=== PATIENT | female | born 1985 ===

== ENCOUNTER 2018-04-30 18:56 | Emergency (ER) | payer MEDICAID, MEDICARE, OTHER ==
[~2018-04-30] VITALS: Ht 180.3 cm; Wt 89.0 kg
[2018-04-30 19:15] VITALS: BP 129/87
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
[2018-04-30 19:36] LABS: BASOPHILS # (AUTO) 0.04 x10^3/uL (0-0.1); BASOPHILS % (AUTO) 1 % (0-1); EOSINOPHILS # (AUTO) 0.08 x10^3/uL (0-0.4); EOSINOPHILS % (AUTO) 1 % (1-7); LYMPHOCYTES % (AUTO) 34 % (22-44); MD NO; MEAN CORPUSCULAR HEMOGLOBIN 29.6 pg (27.0-34.8); MEAN CORPUSCULAR HGB CONC 33.4 g/dL (32.4-35.8); MEAN CORPUSCULAR VOLUME 88.8 fL (80-100); MEAN PLATELET VOLUME 6.2 fL (7.4-10.4); MONOCYTES # (AUTO) 0.47 x10^3/uL (0.2-0.8); MONOCYTES % (AUTO) 7 % (2-9); NEUTROPHILS # (AUTO) 3.73 x10^3/uL (1.8-6.8); NEUTROPHILS % (AUTO) 57 % (42-75); PLATELET COUNT 459 x10^3/uL (130-400); RED BLOOD COUNT 4.45 x10^6/uL (3.82-5.3); RED CELL DISTRIBUTION WIDTH 15.5 % (9.6-15.2)
[2018-04-30 19:43] LABS: AMPHETAMINE SCREEN, URINE Positive (Negative); BARBITURATE SCREEN, URINE Negative (Negative); BENZODIAZEPINE SCREEN, URINE Negative (Negative); CANNABINOID SCREEN, URINE Positive (Negative); COCAINE SCREEN, URINE Negative (Negative); METHADONE SCREEN, URINE Negative (Negative); OPIATE SCREEN, URINE Negative (Negative)
[2018-04-30 19:45] LABS: ALANINE AMINOTRANSFERASE 26 U/L (12-78); ALBUMIN 3.2 g/dL (3.4-5.0); ANION GAP 7 mmol/L (5-15); CALCIUM 8.4 mg/dL (8.5-10.1); CHLORIDE 105 mmol/L (98-107)
[2018-04-30 19:46] LABS: CULTURE INDICATED? YES; MICROSCOPIC INDICATED
[2018-04-30 19:50] LABS: ALKALINE PHOSPHATASE 77 U/L (45-117); BILIRUBIN,TOTAL 0.2 mg/dL (0.2-1.0); CREATININE 0.74 mg/dL (0.55-1.02); TOTAL PROTEIN 7.1 g/dL (6.4-8.2)
[2018-04-30 19:52] LABS: SALICYLATE LEVEL < 1.7 mg/dL (2.8-20.0)
[2018-04-30 19:53] LABS: ACETAMINOPHEN < 2 mcg/mL (10-30)
--- NOTE | 2018-04-30 20:04 | NUR ---
Telepsych initiated, [id number] bot placed at BS
--- NOTE | 2018-04-30 20:50 | NUR ---
PT RESTING ON GURNEY, RR EVEN AND UNLABORED. PT IS CALM AND COOPERATIVE ATT. PT DENIES NEEDS OR PAIN ATT. AWAITING TELEPSYCH
--- NOTE | 2018-04-30 21:24 | NUR ---
report given to soc
--- NOTE | 2018-04-30 21:24 | NUR ---
PT HAVING TELEPSYCH CONSULT ATT
== END 2018-04-30 22:08 | disposition home or self-care (01) ==
LOC: ED 20:43
DX: F32.1 Major depressive disorder, single episode, moderate (principal); F17.200 Nicotine dependence, unspecified, uncomplicated
CPT/HCPCS: 36415; 80053; 80307; 80329; 81001; 84443; 84703; 85025; 87086; 99284; G0480

== ENCOUNTER 2018-05-10 15:39 | Emergency (ER) | payer MEDICAID, MEDICARE ==
[2018-05-10 15:50] VITALS: BP 119/91
--- NOTE | 2018-05-10 15:59 | NUR ---
BIB [facility] ABD PAIN RASH AND THINKS SHE IS SIX MO PREG WANTS A PREG TEST STS LAST PERIOD 1 MO AGO APPEARS SLIGHTLY CONFUSED
[2018-05-10 16:52] LABS: HCG UR SG 1.018 (1.003-1.030)
== END 2018-05-10 18:07 | disposition home or self-care (01) ==
LOC: ED 18:01
DX: L50.0 Allergic urticaria (principal); F32.9 Major depressive disorder, single episode, unspecified; Z87.891 Personal history of nicotine dependence
CPT/HCPCS: 81025; 99284; J7512

== ENCOUNTER 2018-05-14 21:19 | Observation (INO) | payer MEDICARE ==
[~2018-05-14] VITALS: Ht 175.3 cm; Wt 102.0 kg
[2018-05-14 22:11] LABS: BASOPHILS # (AUTO) 0.05 x10^3/uL (0-0.1); BASOPHILS % (AUTO) 1 % (0-1); EOSINOPHILS # (AUTO) 0.07 x10^3/uL (0-0.4); EOSINOPHILS % (AUTO) 1 % (1-7); LYMPHOCYTES # (AUTO) 2.72 x10^3/uL (1-3.4); LYMPHOCYTES % (AUTO) 36 % (22-44); MD NO; MEAN CORPUSCULAR HEMOGLOBIN 29.4 pg (27.0-34.8); MEAN CORPUSCULAR HGB CONC 33.1 g/dL (32.4-35.8); MEAN CORPUSCULAR VOLUME 88.7 fL (80-100); MEAN PLATELET VOLUME 6.8 fL (7.4-10.4); MONOCYTES # (AUTO) 0.78 x10^3/uL (0.2-0.8); MONOCYTES % (AUTO) 10 % (2-9); NEUTROPHILS # (AUTO) 3.95 x10^3/uL (1.8-6.8); NEUTROPHILS % (AUTO) 52 % (42-75); PLATELET COUNT 425 x10^3/uL (130-400); RED BLOOD COUNT 4.42 x10^6/uL (3.82-5.3); RED CELL DISTRIBUTION WIDTH 15.3 % (9.6-15.2)
[2018-05-14 22:23] LABS: ALANINE AMINOTRANSFERASE 27 U/L (12-78); ALBUMIN 3.2 g/dL (3.4-5.0); ANION GAP 5 mmol/L (5-15); CALCIUM 8.2 mg/dL (8.5-10.1); CHLORIDE 102 mmol/L (98-107)
[2018-05-14 22:25] LABS: ALKALINE PHOSPHATASE 94 U/L (45-117); BILIRUBIN,TOTAL 0.2 mg/dL (0.2-1.0); TOTAL PROTEIN 7.3 g/dL (6.4-8.2)
[2018-05-14 22:29] LABS: SALICYLATE LEVEL < 1.7 mg/dL (2.8-20.0)
[2018-05-14 22:30] LABS: ACETAMINOPHEN < 2 mcg/mL (10-30)
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
[2018-05-14] MEDS ORDERED: ABILIFY (22:46)
--- NOTE | 2018-05-14 23:14 | NUR ---
ROOM SECURE. BELONGINGS LOCKED UP: TWO BAGS
--- NOTE | 2018-05-14 23:56 | NUR ---
TASK RN: MICHELLE COLLECTED IN COMPUTER. LAB CONTACTED TO MAKE AWARE.
--- NOTE | 2018-05-14 23:58 | NUR ---
PT RESTING IN ROOM. NO ACUTE DISTRESS NOTED. SITTER AT DOOR. WILL CONTINUE TO MONITOR.
--- NOTE | 2018-05-15 00:03 | NUR ---
TELEPSYCH INITIATED, [id number] BOT PLACED AT BEDSIDE.
--- NOTE | 2018-05-15 00:25 | NUR ---
PT TALKING TO TELEPSYCH. SITTER AT DOOR. WILL CONTINUE TO MONITOR.
[2018-05-15 00:26] LABS: AMPHETAMINE SCREEN, URINE Negative (Negative); BARBITURATE SCREEN, URINE Negative (Negative); BENZODIAZEPINE SCREEN, URINE Negative (Negative); CANNABINOID SCREEN, URINE Positive (Negative); COCAINE SCREEN, URINE Negative (Negative); METHADONE SCREEN, URINE Negative (Negative); OPIATE SCREEN, URINE Negative (Negative)
--- NOTE | 2018-05-15 01:11 | NUR ---
REPORT GIVEN TO SANDRA SEGOVIA
--- NOTE | 2018-05-15 01:11 | NUR ---
REPORT FROM [facility] ASSUMED CARE OF PT
--- NOTE | 2018-05-15 01:12 | NUR ---
Patient is resting comfortably in bed. Vital Signs within normal limits. SITTER AT DOOR
[2018-05-15] MEDS ORDERED: IBUPROFEN 600 MG TABLET PO PRN (04:00)
[2018-05-15] MEDS ORDERED: OLANZAPINE 10 MG INJ IM PRN (04:00)
[2018-05-15] MEDS ORDERED: ACETAMINOPHEN 325 MG TABLET PO PRN (04:00)
[2018-05-15] MEDS ORDERED: GUAIFENESIN/DM 200-20MG, 10ML UDC PO PRN (04:00)
[2018-05-15] MEDS ORDERED: OLANZAPINE 5 MG TABLET PO PRN (04:00)
[2018-05-15] MEDS ORDERED: ONDANSETRON ODT 4 MG PO PRN (04:00)
[2018-05-15] MEDS ORDERED: POLYETHYLENE GLYCOL 17 GM PACKET PO PRN (04:00)
--- NOTE | 2018-05-15 05:50 | NUR ---
PT SLEPT THROUGH NIGHT IN NAD
--- NOTE | 2018-05-15 06:57 | NUR ---
SBAR HAND-OFF REPORT RECEIVED FROM SANDRA CASSIDY. ASSUMING CARE OF PATIENT.
--- NOTE | 2018-05-15 06:58 | NUR ---
PT SLEEPING AT THIS TIME. CHEST RISE AND FALL OBSERVED.
--- NOTE | 2018-05-15 09:01 | NUR ---
REPORT FROM SANDRA RITTER. PT SLEEPING IN [facility]. EQUAL RISE AND FALL OF CHEST. NAD NOTED AT THSI TIME. SITTER OUTSIDE ROOM. ROOM SECURED.
--- NOTE | 2018-05-15 09:34 | NUR ---
LOTUS @ [facility] CALLED, STATED DOC DOES NOT FEEL SHE IS APPROPRIATE FOR ADMISSION. DENIED
[2018-05-15 09:51] VITALS: BP 120/80
--- NOTE | 2018-05-15 10:05 | NUR ---
PT RESTING IN [facility]. NO NEEDS AT THIS TIME. SITTER OUTSIDE ROOM. ROOM SECURED.
--- NOTE | 2018-05-15 11:11 | NUR ---
[facility] NOTIFIED OF APPROX 134 ETA
--- NOTE | 2018-05-15 11:15 | NUR ---
PT RESTING IN [facility]. NO NEEDS AT THIS TIME. SITTER OUTSIDE ROOM. ROOM SECURED.
--- NOTE | 2018-05-15 12:30 | NUR ---
[facility] T[facility] ORDERED[phone]
--- NOTE | 2018-05-15 13:00 | NUR ---
PT GIVEN FOOD TRAY. SITTER CONTINUES TO BE IN PLACE.
[2018-05-15] MEDS ORDERED: IBUPROFEN 600 MG TABLET ONE (13:45)
--- NOTE | 2018-05-15 13:48 | NUR ---
PT COMPLAINING OF LEFT FOOT PAIN. PT MEDICATED PER JUN. RIGHTS VERIFIED PRIOR.
--- NOTE | 2018-05-15 13:55 | NUR ---
REPORT TO [facility] STAFF. PT TO [facility] VIA [facility].
[2018-05-15] MEDS ORDERED: QUETIAPINE 100MG TABLET PO SCH (21:00)
== END 2018-05-15 14:21 ==
LOC: ED 22:45 → EDIP 05-15 00:35 → SUATTDRO 05-15 03:54
PROVIDERS: ADMIT Hospitalist; ATTEND Hospitalist
DX: F25.9 Schizoaffective disorder, unspecified (principal); F32.9 Major depressive disorder, single episode, unspecified; F17.210 Nicotine dependence, cigarettes, uncomplicated; F12.90 Cannabis use, unspecified, uncomplicated; Z91.14 Patient's other noncompliance with medication regimen
CPT/HCPCS: 36415; 80053; 80307; 80329; 84443; 84703; 85025; 93005; 99284; G0378; G0480

== ENCOUNTER 2018-10-12 21:43 | Emergency (ER) | payer MEDICARE ==
[~2018-10-12] VITALS: Ht 177.8 cm; Wt 100.0 kg
[~2018-10-12 21:43] MED LIST: ABILIFY
--- NOTE | 2018-10-12 23:04 | NUR ---
REPORT TO HERMILO FLORES, [employer] AT BEDSIDE. PT SLEEPING IN [facility] ON MONITOR. EQUAL CHEST RISE AND FALL
[2018-10-12 23:28] VITALS: BP 107/64
== END 2018-10-12 23:29 | disposition home or self-care (01) ==
LOC: ED 22:22
DX: O26.891 Other specified pregnancy related conditions, first trimester (principal); R45.1 Restlessness and agitation; F32.9 Major depressive disorder, single episode, unspecified; F29 Unspecified psychosis not due to a substance or known physiological condition; Z3A.00 Weeks of gestation of pregnancy not specified
CPT/HCPCS: 36415; 84703; 99283

== ENCOUNTER 2019-02-07 16:51 | Emergency (ER) | payer MEDICARE, MEDICAID ==
[~2019-02-07] VITALS: Ht 175.3 cm; Wt 95.3 kg
[~2019-02-07 16:51] MED LIST changes: +Prenatal Vit/Iron/Fa PO
[2019-02-07 17:24] VITALS: BP 109/73
[2019-02-07 17:52] LABS: BASOPHILS # (AUTO) 0.03 x10^3/uL (0-0.1); BASOPHILS % (AUTO) 0 % (0-1); EOSINOPHILS # (AUTO) 0.13 x10^3/uL (0-0.4); EOSINOPHILS % (AUTO) 2 % (1-7); LYMPHOCYTES # (AUTO) 1.96 x10^3/uL (1-3.4); LYMPHOCYTES % (AUTO) 26 % (22-44); MD NO; MEAN CORPUSCULAR HEMOGLOBIN 30.4 pg (27.0-34.8); MEAN CORPUSCULAR HGB CONC 32.7 g/dL (32.4-35.8); MEAN CORPUSCULAR VOLUME 93.1 fL (80-100); MEAN PLATELET VOLUME 6.1 fL (7.4-10.4); MONOCYTES # (AUTO) 0.52 x10^3/uL (0.2-0.8); MONOCYTES % (AUTO) 7 % (2-9); NEUTROPHILS # (AUTO) 4.87 x10^3/uL (1.8-6.8); NEUTROPHILS % (AUTO) 65 % (42-75); PLATELET COUNT 516 x10^3/uL (130-400); RED BLOOD COUNT 3.72 x10^6/uL (3.82-5.3); RED CELL DISTRIBUTION WIDTH 15.8 % (9.6-15.2)
[2019-02-07 18:04] LABS: ALBUMIN 2.4 g/dL (3.4-5.0); ANION GAP 6 mmol/L (5-15); CALCIUM 8.1 mg/dL (8.5-10.1); CHLORIDE 105 mmol/L (98-107); CREATININE 0.55 mg/dL (0.55-1.02)
[2019-02-07 18:07] LABS: SALICYLATE LEVEL < 1.7 mg/dL (2.8-20.0)
[2019-02-07 18:22] LABS: HCG UR SG 1.016 (1.003-1.030)
[2019-02-07 18:24] LABS: MICROSCOPIC INDICATED
[2019-02-07 18:25] LABS: CULTURE INDICATED? YES
[2019-02-07 18:45] LABS: AMPHETAMINE SCREEN, URINE Negative (Negative); BARBITURATE SCREEN, URINE Negative (Negative); BENZODIAZEPINE SCREEN, URINE Negative (Negative); CANNABINOID SCREEN, URINE Negative (Negative); COCAINE SCREEN, URINE Negative (Negative); METHADONE SCREEN, URINE Negative (Negative); OPIATE SCREEN, URINE Negative (Negative)
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
--- NOTE | 2019-02-07 19:49 | NUR ---
ROTARY SWAGING MACHINE OPERATOR AT BEDSIDE.
[2019-02-07] MEDS ORDERED: NITR100C56 PO (22:35)
[2019-02-08] MEDS ORDERED: ARIP400S IM (02:48)
== END 2019-02-07 21:10 ==
LOC: ED 19:50
DX: O99.342 Other mental disorders complicating pregnancy, second trimester (principal); F25.0 Schizoaffective disorder, bipolar type; Z3A.22 22 weeks gestation of pregnancy; Z72.9 Problem related to lifestyle, unspecified
CPT/HCPCS: 36415; 80048; 80307; 81001; 81025; 82040; 85025; 87086; 99284

== ENCOUNTER 2019-02-07 19:19 | Inpatient (IN) | payer MEDICARE, MEDICAID ==
[~2019-02-07] VITALS: Ht 175.3 cm; Wt 93.9 kg
[2019-02-07 21:03] VITALS: BP 103/69
[2019-02-07 21:05] VITALS: BP 103/69
[2019-02-07] MEDS ORDERED: NITR100C56 PO (22:35)
[2019-02-07] MEDS: NITROFURANTOIN (MACROBID) 100 MG CAPSULE PO SCH (23:21)
[2019-02-08] MEDS ORDERED: ARIP400S IM (02:48)
[2019-02-08 05:35] LABS: ALANINE AMINOTRANSFERASE 28 U/L (12-78); ALBUMIN 1.9 g/dL (3.4-5.0); ANION GAP 5 mmol/L (5-15); CALCIUM 7.9 mg/dL (8.5-10.1); CHLORIDE 108 mmol/L (98-107); CREATININE 0.52 mg/dL (0.55-1.02)
[2019-02-08 05:37] LABS: ALKALINE PHOSPHATASE 76 U/L (45-117); BILIRUBIN,TOTAL 0.2 mg/dL (0.2-1.0)
[2019-02-08 05:39] LABS: BASOPHILS # (AUTO) 0.03 x10^3/uL (0-0.1); BASOPHILS % (AUTO) 1 % (0-1); EOSINOPHILS # (AUTO) 0.16 x10^3/uL (0-0.4); EOSINOPHILS % (AUTO) 3 % (1-7); LYMPHOCYTES % (AUTO) 33 % (22-44); MD NO; MEAN CORPUSCULAR HEMOGLOBIN 30.3 pg (27.0-34.8); MEAN CORPUSCULAR HGB CONC 32.8 g/dL (32.4-35.8); MEAN CORPUSCULAR VOLUME 92.2 fL (80-100); MEAN PLATELET VOLUME 5.9 fL (7.4-10.4); MONOCYTES # (AUTO) 0.47 x10^3/uL (0.2-0.8); MONOCYTES % (AUTO) 8 % (2-9); NEUTROPHILS # (AUTO) 3.16 x10^3/uL (1.8-6.8); NEUTROPHILS % (AUTO) 55 % (42-75); PLATELET COUNT 440 x10^3/uL (130-400); RED BLOOD COUNT 3.23 x10^6/uL (3.82-5.3); RED CELL DISTRIBUTION WIDTH 15.7 % (9.6-15.2)
[2019-02-08 06:07] LABS: FREE T4 (FREE THYROXINE) 0.79 ng/dL (0.76-1.46)
[2019-02-08 07:30] VITALS: BP 96/61
[2019-02-08 07:35] LABS: CHOL/HDL RATIO 4.3; LDL/HDL RATIO 2.6 (0.5-3.0)
[2019-02-08] MEDS: PRENATAL VIT/IRON/FA 1 EACH TABLET PO SCH (08:39)
[2019-02-08] MEDS: NITROFURANTOIN (MACROBID) 100 MG CAPSULE PO SCH ×2 (08:39→20:10)
[2019-02-08] MEDS ORDERED: DOCUSATE 100 MG CAPSULE PO PRN (09:00)
[2019-02-08] MEDS ORDERED: BISACODYL 10 MG SUPP PR PRN (09:00)
[2019-02-08] MEDS ORDERED: ONDANSETRON ODT 4 MG PO PRN (09:00)
[2019-02-08] MEDS ORDERED: PRENATAL VIT/IRON/FA 1 EACH TABLET PO SCH (09:00)
[2019-02-08] MEDS ORDERED: ACETAMINOPHEN 325 MG TABLET PO PRN (09:00)
[2019-02-08] MEDS ORDERED: POLYETHYLENE GLYCOL 17 GM PACKET PO PRN (09:00)
[2019-02-08 19:18] VITALS: BP 107/65
[2019-02-09 07:11] VITALS: BP 102/69
[2019-02-09] MEDS: PRENATAL VIT/IRON/FA 1 EACH TABLET PO SCH (08:33)
[2019-02-09] MEDS: NITROFURANTOIN (MACROBID) 100 MG CAPSULE PO SCH ×2 (08:33→20:20)
[2019-02-09 19:18] VITALS: BP 98/66
[2019-02-10 07:23] VITALS: BP 94/56
[2019-02-10] MEDS: NITROFURANTOIN (MACROBID) 100 MG CAPSULE PO SCH ×2 (08:51→20:28)
[2019-02-10] MEDS: PRENATAL VIT/IRON/FA 1 EACH TABLET PO SCH (08:51)
[2019-02-10 19:57] VITALS: BP 101/68
[2019-02-11 07:46] VITALS: BP 97/67
[2019-02-11] MEDS: PRENATAL VIT/IRON/FA 1 EACH TABLET PO SCH (08:16)
[2019-02-11] MEDS: NITROFURANTOIN (MACROBID) 100 MG CAPSULE PO SCH ×2 (08:16→20:18)
[2019-02-11 19:30] VITALS: BP 99/66
[2019-02-12 07:20] VITALS: BP 95/60
[2019-02-12 07:21] VITALS: BP 90/60
[2019-02-12] MEDS: NITROFURANTOIN (MACROBID) 100 MG CAPSULE PO SCH ×2 (08:23→20:17)
[2019-02-12] MEDS: PRENATAL VIT/IRON/FA 1 EACH TABLET PO SCH (08:57)
[2019-02-12 19:40] VITALS: BP 102/59
[2019-02-13 07:20] VITALS: BP 100/63
[2019-02-13] MEDS: PRENATAL VIT/IRON/FA 1 EACH TABLET PO SCH (08:03)
[2019-02-13] MEDS: NITROFURANTOIN (MACROBID) 100 MG CAPSULE PO SCH ×2 (08:03→19:51)
[2019-02-13 19:22] VITALS: BP 109/74
[2019-02-14 07:20] VITALS: BP 93/59
[2019-02-14] MEDS: NITROFURANTOIN (MACROBID) 100 MG CAPSULE PO SCH (08:23)
[2019-02-14] MEDS: PRENATAL VIT/IRON/FA 1 EACH TABLET PO SCH (08:23)
[2019-02-14 19:15] VITALS: BP 108/67
[2019-02-15 07:47] VITALS: BP 102/69
[2019-02-15] MEDS: PRENATAL VIT/IRON/FA 1 EACH TABLET PO SCH (08:08)
[2019-02-15 19:44] VITALS: BP 110/88
[2019-02-16 07:42] VITALS: BP 107/74
[2019-02-16] MEDS: PRENATAL VIT/IRON/FA 1 EACH TABLET PO SCH (08:30)
[2019-02-16 20:12] VITALS: BP 107/72
[2019-02-17 07:48] VITALS: BP 97/63
[2019-02-17] MEDS: PRENATAL VIT/IRON/FA 1 EACH TABLET PO SCH (12:30)
[2019-02-17] MEDS ORDERED: Prenatal Vit/Iron/Fa PO (16:50)
[2019-02-17 19:38] VITALS: BP 100/62
[2019-02-18 07:17] VITALS: BP 99/60
[2019-02-18] MEDS: PRENATAL VIT/IRON/FA 1 EACH TABLET PO SCH (08:36)
== END 2019-02-18 15:10 | disposition home or self-care (01) | DRG 831 ==
LOC: 3E 20:41
PROVIDERS: ADMIT Psychiatry & Neurology Psychosomatic Medicine; ATTEND Psychiatry & Neurology Psychosomatic Medicine
DX: O99.342 Other mental disorders complicating pregnancy, second trimester (principal); E43 Unspecified severe protein-calorie malnutrition; O23.42 Unspecified infection of urinary tract in pregnancy, second trimester; F15.20 Other stimulant dependence, uncomplicated; O99.322 Drug use complicating pregnancy, second trimester; F25.0 Schizoaffective disorder, bipolar type; F15.21 Other stimulant dependence, in remission; R62.7 Adult failure to thrive; O26.892 Other specified pregnancy related conditions, second trimester; D64.9 Anemia, unspecified; F17.200 Nicotine dependence, unspecified, uncomplicated; O25.12 Malnutrition in pregnancy, second trimester; O99.012 Anemia complicating pregnancy, second trimester; Z66 Do not resuscitate; O99.332 Smoking (tobacco) complicating pregnancy, second trimester; Z3A.23 23 weeks gestation of pregnancy; Z59.0 Homelessness
CPT/HCPCS: 36415; 76805; 80048; 80053; 80061; 80307; 81001; 81025; 82040; 82140; 82607; 84439; 84443; 85025; 86592; 86762; 86850; 86900; 87086; 87340; 87389; 93005; 99284

== ENCOUNTER 2019-02-22 13:57 | Emergency (ER) | payer MEDICARE, MEDICAID ==
[~2019-02-22] VITALS: Ht 175.3 cm; Wt 76.0 kg
[~2019-02-22 13:57] MED LIST changes: +ARIP400S IM; +NITR100C56 PO
[2019-02-22 14:22] VITALS: BP 113/77
[2019-02-22] MEDS ORDERED: ARIP400S3 IM (14:40)
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
--- NOTE | 2019-02-22 15:06 | NUR ---
CONFIRMED VIA US.
[2019-02-22 15:36] LABS: BASOPHILS # (AUTO) 0.02 x10^3/uL (0-0.1); BASOPHILS % (AUTO) 0 % (0-1); EOSINOPHILS # (AUTO) 0.02 x10^3/uL (0-0.4); EOSINOPHILS % (AUTO) 0 % (1-7); LYMPHOCYTES # (AUTO) 1.64 x10^3/uL (1-3.4); LYMPHOCYTES % (AUTO) 26 % (22-44); MD NO; MEAN CORPUSCULAR HEMOGLOBIN 30.1 pg (27.0-34.8); MEAN CORPUSCULAR HGB CONC 33.1 g/dL (32.4-35.8); MEAN CORPUSCULAR VOLUME 91.1 fL (80-100); MONOCYTES # (AUTO) 0.43 x10^3/uL (0.2-0.8); MONOCYTES % (AUTO) 7 % (2-9); NEUTROPHILS # (AUTO) 4.28 x10^3/uL (1.8-6.8); NEUTROPHILS % (AUTO) 67 % (42-75); PLATELET COUNT 469 x10^3/uL (130-400); RED BLOOD COUNT 3.62 x10^6/uL (3.82-5.3); RED CELL DISTRIBUTION WIDTH 16.6 % (9.6-15.2)
[2019-02-22 15:47] LABS: ALANINE AMINOTRANSFERASE 31 U/L (12-78); ALBUMIN 2.5 g/dL (3.4-5.0); ANION GAP 6 mmol/L (5-15); CALCIUM 8.3 mg/dL (8.5-10.1); CHLORIDE 109 mmol/L (98-107); CREATININE 0.66 mg/dL (0.55-1.02)
[2019-02-22 15:50] LABS: ALKALINE PHOSPHATASE 81 U/L (45-117); BILIRUBIN,TOTAL 0.4 mg/dL (0.2-1.0); SALICYLATE LEVEL < 1.7 mg/dL (2.8-20.0); TOTAL PROTEIN 7.1 g/dL (6.4-8.2)
--- NOTE | 2019-02-22 15:59 | NUR ---
PATIENT SLEEPING ON GURNEY. CHEST RISE AND FALL OBSERVED. SOCIAL WORK SITTING IN ROOM WITH PATIENT. DENIES FURTHER NEEDS AT THIS TIME. WILL CONTINUE TO MONITOR.
--- NOTE | 2019-02-22 17:08 | NUR ---
PATIENT RESTING ON GURNEY WATCHING TV. DENIES FURTHER NEEDS AT THIS TIME.
--- NOTE | 2019-02-22 17:48 | NUR ---
PATIENT AMBULATED TO THE BATHROOM AND UA OBTAINED.
[2019-02-22 18:06] LABS: AMPHETAMINE SCREEN, URINE Positive (Negative); BARBITURATE SCREEN, URINE Negative (Negative); BENZODIAZEPINE SCREEN, URINE Negative (Negative); CANNABINOID SCREEN, URINE Positive (Negative); COCAINE SCREEN, URINE Negative (Negative); METHADONE SCREEN, URINE Negative (Negative); OPIATE SCREEN, URINE Negative (Negative)
--- NOTE | 2019-02-22 18:38 | NUR ---
SBAR REPORT GIVEN TO ORTEGA FLORES ON 3E.
== END 2019-02-22 19:17 ==
LOC: ED 16:53
DX: F22 Delusional disorders (principal); F15.950 Other stimulant use, unspecified with stimulant-induced psychotic disorder with delusions; F12.10 Cannabis abuse, uncomplicated; F17.200 Nicotine dependence, unspecified, uncomplicated; Z72.9 Problem related to lifestyle, unspecified; Z91.14 Patient's other noncompliance with medication regimen; Z63.8 Other specified problems related to primary support group
CPT/HCPCS: 36415; 80053; 80307; 85025; 87491; 87591; 99285

== ENCOUNTER 2019-02-22 17:43 | Inpatient (IN) | payer MEDICARE, MEDICAID ==
[~2019-02-22] VITALS: Ht 175.3 cm; Wt 102.0 kg
[~2019-02-22 17:43] MED LIST changes: +ARIP400S3 IM
[2019-02-22] MEDS ORDERED: DOCUSATE 100 MG CAPSULE PO PRN (18:30)
[2019-02-22] MEDS ORDERED: ONDANSETRON ODT 4 MG PO PRN (18:30)
[2019-02-22] MEDS ORDERED: BISACODYL 10 MG SUPP PR PRN (18:30)
[2019-02-22] MEDS ORDERED: POLYETHYLENE GLYCOL 17 GM PACKET PO PRN (18:30)
[2019-02-22] MEDS ORDERED: PLEASE ENTER HEIGHT AND WEIGHT MC SCH ×2 (19:30→20:45)
[2019-02-22 19:31] VITALS: BP 101/62
[2019-02-22 21:03] LABS: CULTURE INDICATED? YES; MICROSCOPIC INDICATED
[2019-02-22] MEDS ORDERED: metroNIDAZOLE 500 MG TABLET PO ONE (22:30)
[2019-02-23 00:18] VITALS: BP 101/62
[2019-02-23 07:34] VITALS: BP 106/70
[2019-02-23 12:06] LABS: GLUCOSE, FASTING 81 mg/dL (74-106)
[2019-02-23] MEDS: PRENATAL VIT/IRON/FA 1 EACH TABLET PO SCH (13:32)
[2019-02-23] MEDS: FOLIC ACID 1 MG TABLET PO SCH (13:32)
[2019-02-23 19:30] VITALS: BP 110/76
[2019-02-24 07:08] VITALS: BP 95/61
[2019-02-24] MEDS: FOLIC ACID 1 MG TABLET PO SCH (08:23)
[2019-02-24] MEDS: PRENATAL VIT/IRON/FA 1 EACH TABLET PO SCH (08:23)
[2019-02-24 19:37] VITALS: BP 102/70
[2019-02-25 07:36] VITALS: BP 100/66
[2019-02-25] MEDS: PRENATAL VIT/IRON/FA 1 EACH TABLET PO SCH (08:22)
[2019-02-25] MEDS: FOLIC ACID 1 MG TABLET PO SCH (08:22)
[2019-02-25] MEDS ORDERED: AZITHROMYCIN 500 MG TABLET PO ONE (12:00)
[2019-02-25] MEDS ORDERED: CEFTRIAXONE 250 MG IM ONE (12:00)
[2019-02-25] MEDS ORDERED: LIDOCAINE-MPF 1%, 2ML ONE (13:19)
[2019-02-25 19:26] VITALS: BP 98/59
[2019-02-26 07:29] VITALS: BP 100/62
[2019-02-26] MEDS: PRENATAL VIT/IRON/FA 1 EACH TABLET PO SCH (12:10)
[2019-02-26] MEDS: FOLIC ACID 1 MG TABLET PO SCH (12:10)
[2019-02-26 19:15] VITALS: BP 99/63
[2019-02-27] MEDS: ACETAMINOPHEN 325 MG TABLET PO PRN ×2 (00:33→22:23)
[2019-02-27 07:42] VITALS: BP 92/56
[2019-02-27] MEDS: PRENATAL VIT/IRON/FA 1 EACH TABLET PO SCH (08:22)
[2019-02-27] MEDS: FOLIC ACID 1 MG TABLET PO SCH (08:23)
[2019-02-27 19:00] VITALS: BP 115/75
[2019-02-28] MEDS: ACETAMINOPHEN 325 MG TABLET PO PRN ×3 (02:23→20:16)
[2019-02-28 07:00] VITALS: BP 97/61
[2019-02-28] MEDS: FOLIC ACID 1 MG TABLET PO SCH (08:37)
[2019-02-28] MEDS: PRENATAL VIT/IRON/FA 1 EACH TABLET PO SCH (08:37)
[2019-02-28 20:00] VITALS: BP 90/57
[2019-03-01 02:55] VITALS: BP 111/74
[2019-03-01] MEDS: ACETAMINOPHEN 325 MG TABLET PO PRN ×3 (03:35→19:53)
[2019-03-01 07:06] VITALS: BP 109/73
[2019-03-01] MEDS: PRENATAL VIT/IRON/FA 1 EACH TABLET PO SCH (08:21)
[2019-03-01] MEDS: FOLIC ACID 1 MG TABLET PO SCH (08:21)
[2019-03-01 19:25] VITALS: BP 112/76
[2019-03-02] MEDS: ACETAMINOPHEN 325 MG TABLET PO PRN (02:54)
[2019-03-02 07:33] VITALS: BP 108/68
[2019-03-02] MEDS: FOLIC ACID 1 MG TABLET PO SCH (09:05)
[2019-03-02] MEDS: PRENATAL VIT/IRON/FA 1 EACH TABLET PO SCH (09:05)
[2019-03-02 19:38] VITALS: BP 113/74
[2019-03-03 07:46] VITALS: BP 100/64
[2019-03-03] MEDS: PRENATAL VIT/IRON/FA 1 EACH TABLET PO SCH (08:21)
[2019-03-03] MEDS: FOLIC ACID 1 MG TABLET PO SCH (08:21)
[2019-03-03 19:34] VITALS: BP 101/67
[2019-03-03] MEDS: ACETAMINOPHEN 325 MG TABLET PO PRN (20:21)
[2019-03-04 07:18] VITALS: BP 96/59
[2019-03-04] MEDS: PRENATAL VIT/IRON/FA 1 EACH TABLET PO SCH (09:22)
[2019-03-04] MEDS: FOLIC ACID 1 MG TABLET PO SCH (09:22)
[2019-03-04] MEDS ORDERED: PALIPERIDONE PALMITATE 117 MG/0.75 ML ML IM ONE (14:00)
[2019-03-04 19:32] VITALS: BP 105/65
[2019-03-05 07:55] VITALS: BP 100/65
[2019-03-05] MEDS: PRENATAL VIT/IRON/FA 1 EACH TABLET PO SCH (08:14)
[2019-03-05] MEDS: FOLIC ACID 1 MG TABLET PO SCH (08:14)
[2019-03-05] MEDS: ACETAMINOPHEN 325 MG TABLET PO PRN (08:19)
[2019-03-05 19:40] VITALS: BP 105/66
[2019-03-06 07:16] VITALS: BP 119/86
[2019-03-06] MEDS: PRENATAL VIT/IRON/FA 1 EACH TABLET PO SCH (08:37)
[2019-03-06] MEDS: FOLIC ACID 1 MG TABLET PO SCH (08:37)
[2019-03-06 19:41] VITALS: BP 99/66
[2019-03-07 07:20] VITALS: BP 100/66
[2019-03-07] MEDS: FOLIC ACID 1 MG TABLET PO SCH (07:59)
[2019-03-07] MEDS: PRENATAL VIT/IRON/FA 1 EACH TABLET PO SCH (07:59)
[2019-03-07 19:41] VITALS: BP 104/69
[2019-03-08 07:10] VITALS: BP 106/68
[2019-03-08] MEDS: PRENATAL VIT/IRON/FA 1 EACH TABLET PO SCH (08:36)
[2019-03-08] MEDS: FOLIC ACID 1 MG TABLET PO SCH (08:36)
[2019-03-08 19:29] VITALS: BP 99/64
[2019-03-09 07:25] VITALS: BP 92/54
[2019-03-09] MEDS: FOLIC ACID 1 MG TABLET PO SCH (08:41)
[2019-03-09] MEDS: PRENATAL VIT/IRON/FA 1 EACH TABLET PO SCH (08:41)
[2019-03-09 19:12] VITALS: BP 98/62
[2019-03-10 07:25] VITALS: BP 100/67
[2019-03-10] MEDS: FOLIC ACID 1 MG TABLET PO SCH (08:11)
[2019-03-10] MEDS: PRENATAL VIT/IRON/FA 1 EACH TABLET PO SCH (08:11)
[2019-03-10 19:23] VITALS: BP 110/68
[2019-03-11 07:57] VITALS: BP 109/72
[2019-03-11] MEDS: FOLIC ACID 1 MG TABLET PO SCH (08:07)
[2019-03-11] MEDS: PRENATAL VIT/IRON/FA 1 EACH TABLET PO SCH (08:07)
[2019-03-11 19:53] VITALS: BP 105/66
[2019-03-12 07:38] VITALS: BP 96/61
[2019-03-12] MEDS: FOLIC ACID 1 MG TABLET PO SCH (08:57)
[2019-03-12] MEDS: PRENATAL VIT/IRON/FA 1 EACH TABLET PO SCH (08:57)
[2019-03-12 19:38] VITALS: BP 95/51
[2019-03-13 07:08] VITALS: BP 99/64
[2019-03-13] MEDS: FOLIC ACID 1 MG TABLET PO SCH (08:15)
[2019-03-13] MEDS: PRENATAL VIT/IRON/FA 1 EACH TABLET PO SCH (08:15)
[2019-03-13 19:00] VITALS: BP 111/70
[2019-03-14 07:10] VITALS: BP 100/66
[2019-03-14] MEDS: PRENATAL VIT/IRON/FA 1 EACH TABLET PO SCH (08:18)
[2019-03-14] MEDS: FOLIC ACID 1 MG TABLET PO SCH (08:18)
[2019-03-14 19:45] VITALS: BP 105/69
[2019-03-15 07:56] VITALS: BP 103/70
[2019-03-15] MEDS: FOLIC ACID 1 MG TABLET PO SCH (08:21)
[2019-03-15] MEDS: PRENATAL VIT/IRON/FA 1 EACH TABLET PO SCH (08:21)
[2019-03-15 19:17] VITALS: BP 103/66
[2019-03-16 07:10] VITALS: BP 93/58
[2019-03-16] MEDS: FOLIC ACID 1 MG TABLET PO SCH (08:09)
[2019-03-16] MEDS: PRENATAL VIT/IRON/FA 1 EACH TABLET PO SCH (08:09)
[2019-03-16 19:45] VITALS: BP 109/66
[2019-03-17 07:15] VITALS: BP 107/62
[2019-03-17] MEDS: FOLIC ACID 1 MG TABLET PO SCH (09:18)
[2019-03-17] MEDS: PRENATAL VIT/IRON/FA 1 EACH TABLET PO SCH (09:18)
[2019-03-17 19:53] VITALS: BP 111/72
[2019-03-18 07:46] VITALS: BP 100/65
[2019-03-18] MEDS: FOLIC ACID 1 MG TABLET PO SCH (08:36)
[2019-03-18] MEDS: PRENATAL VIT/IRON/FA 1 EACH TABLET PO SCH (08:36)
[2019-03-18 19:37] VITALS: BP 92/54
[2019-03-19 07:39] VITALS: BP 99/62
[2019-03-19] MEDS: FOLIC ACID 1 MG TABLET PO SCH (08:19)
[2019-03-19] MEDS: PRENATAL VIT/IRON/FA 1 EACH TABLET PO SCH (08:19)
[2019-03-19 19:28] VITALS: BP 113/73
[2019-03-20 07:15] VITALS: BP 91/56
[2019-03-20] MEDS: PRENATAL VIT/IRON/FA 1 EACH TABLET PO SCH (08:23)
[2019-03-20] MEDS: FOLIC ACID 1 MG TABLET PO SCH (08:23)
[2019-03-20 19:19] VITALS: BP 96/59
[2019-03-21 07:28] VITALS: BP 105/70
[2019-03-21] MEDS: PRENATAL VIT/IRON/FA 1 EACH TABLET PO SCH (08:36)
[2019-03-21] MEDS: FOLIC ACID 1 MG TABLET PO SCH (08:36)
[2019-03-21 19:14] VITALS: BP 118/81
[2019-03-21 19:30] VITALS: BP 121/78
[2019-03-22 07:22] VITALS: BP 96/56
[2019-03-22] MEDS: PRENATAL VIT/IRON/FA 1 EACH TABLET PO SCH (08:35)
[2019-03-22] MEDS: FOLIC ACID 1 MG TABLET PO SCH (08:35)
[2019-03-22 19:56] VITALS: BP 99/65
[2019-03-23 07:10] VITALS: BP 108/70
[2019-03-23] MEDS: PRENATAL VIT/IRON/FA 1 EACH TABLET PO SCH (08:12)
[2019-03-23] MEDS: FOLIC ACID 1 MG TABLET PO SCH (08:12)
[2019-03-23 19:36] VITALS: BP 103/69
[2019-03-24 07:50] VITALS: BP 108/70
[2019-03-24] MEDS: FOLIC ACID 1 MG TABLET PO SCH (08:28)
[2019-03-24] MEDS: PRENATAL VIT/IRON/FA 1 EACH TABLET PO SCH (08:28)
[2019-03-24 19:46] VITALS: BP 114/66
[2019-03-25 07:43] VITALS: BP 108/68
[2019-03-25] MEDS: PRENATAL VIT/IRON/FA 1 EACH TABLET PO SCH (08:10)
[2019-03-25] MEDS: FOLIC ACID 1 MG TABLET PO SCH (08:10)
[2019-03-25 19:44] VITALS: BP 114/77
[2019-03-25] MEDS: DIPHENHYDRAMINE 25 MG CAPSULE PO PRN (22:18)
[2019-03-26 07:48] VITALS: BP 92/62
[2019-03-26] MEDS: PRENATAL VIT/IRON/FA 1 EACH TABLET PO SCH (08:07)
[2019-03-26] MEDS: FOLIC ACID 1 MG TABLET PO SCH (08:07)
[2019-03-26 19:48] VITALS: BP 111/76
[2019-03-26] MEDS: DIPHENHYDRAMINE 25 MG CAPSULE PO PRN (22:28)
[2019-03-27 07:24] VITALS: BP 109/70
[2019-03-27] MEDS: PRENATAL VIT/IRON/FA 1 EACH TABLET PO SCH (08:21)
[2019-03-27] MEDS: FOLIC ACID 1 MG TABLET PO SCH (08:21)
[2019-03-27 19:35] VITALS: BP 96/61
[2019-03-27] MEDS: DIPHENHYDRAMINE 25 MG CAPSULE PO PRN (23:02)
[2019-03-28 07:22] VITALS: BP 107/70
[2019-03-28] MEDS: PRENATAL VIT/IRON/FA 1 EACH TABLET PO SCH (08:17)
[2019-03-28] MEDS: FOLIC ACID 1 MG TABLET PO SCH (08:17)
[2019-03-28 19:24] VITALS: BP 110/73
[2019-03-28] MEDS: DIPHENHYDRAMINE 25 MG CAPSULE PO PRN (20:16)
[2019-03-29 07:13] VITALS: BP 101/70
[2019-03-29] MEDS: PRENATAL VIT/IRON/FA 1 EACH TABLET PO SCH (09:17)
[2019-03-29] MEDS: FOLIC ACID 1 MG TABLET PO SCH (09:17)
[2019-03-29 19:29] VITALS: BP 96/65
[2019-03-29] MEDS: DIPHENHYDRAMINE 25 MG CAPSULE PO PRN (22:57)
[2019-03-30 07:23] VITALS: BP 106/70
[2019-03-30] MEDS: PRENATAL VIT/IRON/FA 1 EACH TABLET PO SCH (08:34)
[2019-03-30] MEDS: FOLIC ACID 1 MG TABLET PO SCH (08:34)
[2019-03-30 19:00] VITALS: BP 107/78
[2019-03-30] MEDS: DIPHENHYDRAMINE 25 MG CAPSULE PO PRN (20:47)
[2019-03-31 08:00] VITALS: BP 102/66
[2019-03-31] MEDS: PRENATAL VIT/IRON/FA 1 EACH TABLET PO SCH (08:33)
[2019-03-31] MEDS: FOLIC ACID 1 MG TABLET PO SCH (08:33)
[2019-03-31] MEDS ORDERED: FLU VACC QS2019-20 36MOS UP/PF 0.5 ML IM-VACC ONE (13:00)
[2019-03-31 19:33] VITALS: BP 104/68
[2019-03-31] MEDS: DIPHENHYDRAMINE 25 MG CAPSULE PO PRN (22:44)
[2019-04-01 07:36] VITALS: BP 109/68
[2019-04-01] MEDS: FOLIC ACID 1 MG TABLET PO SCH (08:23)
[2019-04-01] MEDS: PRENATAL VIT/IRON/FA 1 EACH TABLET PO SCH (08:23)
[2019-04-01 19:56] VITALS: BP 120/72
[2019-04-02 07:32] VITALS: BP 94/64
[2019-04-02] MEDS: FOLIC ACID 1 MG TABLET PO SCH (08:06)
[2019-04-02] MEDS: PRENATAL VIT/IRON/FA 1 EACH TABLET PO SCH (08:06)
[2019-04-02] MEDS ORDERED: PALIPERIDONE PALMITATE 156 MG/ML IM SCH (13:00)
[2019-04-02 19:30] VITALS: BP 110/73
[2019-04-03 07:41] VITALS: BP 104/69
[2019-04-03] MEDS: PRENATAL VIT/IRON/FA 1 EACH TABLET PO SCH (08:15)
[2019-04-03] MEDS: FOLIC ACID 1 MG TABLET PO SCH (08:15)
[2019-04-03] MEDS ORDERED: Prenatal Vit/Iron/Fa PO (14:13)
[2019-04-03] MEDS ORDERED: DIPH25CA26 PO (14:13)
[2019-04-03] MEDS ORDERED: PALI156D IM (14:15)
[2019-04-03 19:27] VITALS: BP 113/76
[2019-04-03] MEDS: DIPHENHYDRAMINE 25 MG CAPSULE PO PRN (20:19)
[2019-04-04 07:11] VITALS: BP 101/72
[2019-04-04] MEDS: FOLIC ACID 1 MG TABLET PO SCH (08:31)
[2019-04-04] MEDS: PRENATAL VIT/IRON/FA 1 EACH TABLET PO SCH (08:31)
[2019-04-09] MEDS ORDERED: FOLI-17 PO (12:02)
[2019-06-01] MEDS ORDERED: IBUP200T49 PO (14:16)
== END 2019-04-04 15:05 | disposition home or self-care (01) | DRG 885 ==
LOC: 3E 19:06
PROVIDERS: ADMIT Psychiatry & Neurology Psychosomatic Medicine; ATTEND Psychiatry & Neurology Psychosomatic Medicine
DX: F25.1 Schizoaffective disorder, depressive type (principal); F15.20 Other stimulant dependence, uncomplicated; O99.322 Drug use complicating pregnancy, second trimester; O99.342 Other mental disorders complicating pregnancy, second trimester; Z3A.25 25 weeks gestation of pregnancy; F12.10 Cannabis abuse, uncomplicated; F12.19 Cannabis abuse with unspecified cannabis-induced disorder; F17.200 Nicotine dependence, unspecified, uncomplicated; G47.00 Insomnia, unspecified; O99.332 Smoking (tobacco) complicating pregnancy, second trimester; O99.352 Diseases of the nervous system complicating pregnancy, second trimester; Z59.0 Homelessness; Z91.83 Wandering in diseases classified elsewhere
CPT/HCPCS: 36415; 76805; 80053; 80307; 81001; 82947; 82950; 82951; 85025; 86803; 87086; 87491; 87591; 90686; 99285; J0696; J2426; Q0163

== ENCOUNTER 2019-04-08 17:04 | Emergency (ER) | payer MEDICARE, MEDICAID ==
[~2019-04-08] VITALS: Ht 170.2 cm; Wt 98.0 kg
[~2019-04-08 17:04] MED LIST changes: +DIPH25CA26 PO; +PALI156D IM
[2019-04-08 18:06] LABS: BASOPHILS # (AUTO) 0.01 x10^3/uL (0-0.1); BASOPHILS % (AUTO) 0 % (0-1); EOSINOPHILS # (AUTO) 0.01 x10^3/uL (0-0.4); EOSINOPHILS % (AUTO) 0 % (1-7); LYMPHOCYTES # (AUTO) 1.59 x10^3/uL (1-3.4); LYMPHOCYTES % (AUTO) 21 % (22-44); MD NO; MEAN CORPUSCULAR HEMOGLOBIN 30.1 pg (27.0-34.8); MEAN CORPUSCULAR HGB CONC 32.7 g/dL (32.4-35.8); MEAN PLATELET VOLUME 6.6 fL (7.4-10.4); MONOCYTES % (AUTO) 5 % (2-9); NEUTROPHILS # (AUTO) 5.71 x10^3/uL (1.8-6.8); NEUTROPHILS % (AUTO) 74 % (42-75); PLATELET COUNT 345 x10^3/uL (130-400); RED BLOOD COUNT 3.91 x10^6/uL (3.82-5.3); RED CELL DISTRIBUTION WIDTH 15.9 % (9.6-15.2)
[2019-04-08 18:15] LABS: ALANINE AMINOTRANSFERASE 39 U/L (12-78); ALBUMIN 2.7 g/dL (3.4-5.0); ANION GAP 10 mmol/L (5-15); CALCIUM 8.6 mg/dL (8.5-10.1); CHLORIDE 109 mmol/L (98-107)
[2019-04-08 18:17] LABS: ALKALINE PHOSPHATASE 105 U/L (45-117); BILIRUBIN,TOTAL 0.6 mg/dL (0.2-1.0); CREATININE 0.67 mg/dL (0.55-1.02); SALICYLATE LEVEL < 1.7 mg/dL (2.8-20.0); TOTAL PROTEIN 7.4 g/dL (6.4-8.2)
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
--- NOTE | 2019-04-08 18:48 | NUR ---
PT SLEEPING. VIDEO GAME DEVELOPER WITH HILDA BALL REMAINS AT BEDSIDE.
--- NOTE | 2019-04-08 18:59 | NUR ---
Report received from SANDRA Darnell. This RN to assume care.
[2019-04-08 20:42] LABS: CULTURE INDICATED? YES; MICROSCOPIC INDICATED
[2019-04-08 20:49] LABS: AMPHETAMINE SCREEN, URINE Positive (Negative); BARBITURATE SCREEN, URINE Negative (Negative); BENZODIAZEPINE SCREEN, URINE Negative (Negative); CANNABINOID SCREEN, URINE Positive (Negative); COCAINE SCREEN, URINE Negative (Negative); METHADONE SCREEN, URINE Negative (Negative); OPIATE SCREEN, URINE Negative (Negative)
[2019-04-08] MEDS ORDERED: CEFDINIR 300 MG CAPSULE PO ONE (21:00)
[2019-04-08] MEDS ORDERED: CEFDINIR 300 MG CAPSULE ONE (21:15)
[2019-04-08 21:17] VITALS: BP 93/63
--- NOTE | 2019-04-08 22:12 | NUR ---
Report given to SANDRA Eddy. Patient to be discharged and transferred to [facility].
[2019-04-09] MEDS ORDERED: FOLI-17 PO (12:02)
== END 2019-04-08 22:34 ==
LOC: ED 17:17
DX: O26.893 Other specified pregnancy related conditions, third trimester (principal); Z3A.30 30 weeks gestation of pregnancy
CPT/HCPCS: 36415; 76815; 80053; 80307; 81001; 85025; 87086; 99284